=== PATIENT | female | born 2000 | race Two or more races ===

== ENCOUNTER 2021-05-25 19:06 | Emergency (ER) | payer OTHER ==
[2021-05-25 19:15] VITALS: BP 151/73; BMI 35.9
[2021-05-25] MEDS ORDERED: LACTATED RINGERS SOLUTION 1000 ML INFUS.BAG IV ONE (20:11)
[2021-05-25] MEDS ORDERED: ACETAMINOPHEN 1000 MG/100 ML VIAL IVPB ONE (20:11)
[2021-05-25] MEDS ORDERED: ACETAMINOPHEN INJECTION 100 ML IVPB ONE (20:55)
[2021-05-25 21:48] VITALS: TEMP 99.1
[2021-05-25 21:48] LABS: EPI CELLS 16 /uL (0-25.1); HYALINE CASTS 2 /uL (0-3.1); PH,URINE 5.5 (5.0-8.0); URINE APPEARANCE CLOUDY; URINE BACTERIA >9,000 /uL (0-1359); URINE BILIRUBIN NEGATIVE (NEGATIVE); URINE COLOR YELLOW; URINE GLUCOSE (UA) NEGATIVE (NEGATIVE); URINE KETONE 1+ (NEGATIVE); URINE LEUK ESTERASE 2+ (NEGATIVE); URINE NITRITE POSITIVE (NEGATIVE); URINE PROTEIN 1+ (NEGATIVE); URINE RBC 67 /uL (0-23.9); URINE UROBILINOGEN 0.2 mg/dL (0.2-1.0); URINE WBC 469 /uL (0-25.8)
[2021-05-25 21:49] LABS: HCG,QUALITATIVE URINE Negative
[2021-05-25 21:54] LABS: HEMATOCRIT 34.1 % (32.4-45.2); HEMOGLOBIN 12.3 GM/dL (10.7-15.3); MCH 29.7 pg (25.7-33.7); MCHC 35.9 g/dl (32.0-36.0); MEAN CELL VOLUME 82.7 fl (80-96); MEAN PLT VOLUME 8.2 fl (7.5-11.1); PLATELET COUNT 238 10^3/uL (134-434); RBC 4.13 M/mm3 (3.60-5.2); RDW 13.9 % (11.6-15.6); WHITE BLOOD COUNT 9.5 K/mm3 (4.0-10.0)
[2021-05-25 21:55] LABS: INR 1.25 (0.83-1.09); PROTHROMBIN TIME (PATIENT) 14.7 SEC (9.7-13.0)
[2021-05-25 21:57] LABS: ACTIVATED PTT 22.6 SECONDS (25.2-36.5)
[2021-05-25] MEDS ORDERED: CEFTRIAXONE 1,000 MG in DEXTROSE 5%-WATER - 50 ML IVPB ONE (22:01)
[2021-05-25 22:11] LABS: ALBUMIN 3.8 g/dl (3.4-5.0)
[2021-05-25 22:14] LABS: CREATININE 0.9 mg/dL (0.55-1.3)
[2021-05-25 22:15] LABS: BILIRUBIN,TOTAL 1.1 mg/dL (0.2-1); TOT PROT 8.1 g/dl (6.4-8.2)
[2021-05-25] MEDS ORDERED: CEFTRIAXONE 1 GM/50 ML BAG ONE (22:20)
[2021-05-25 22:36] VITALS: PULSE 92
[2021-05-25 23:10] LABS: ANISOCYTOSIS 2+; MACROCYTOSIS 1+; PLATELET ESTIMATE NORMAL
== END 2021-05-25 22:44 | disposition home or self-care (01) ==
LOC: JER 19:06
PROC: 3E0333Z Introduction of Anti-inflammatory into Peripheral Vein, Percutaneous Approach (ICD-10-PCS; principal; 2021-05-25)
PROC: 3E03329 Introduction of Other Anti-infective into Peripheral Vein, Percutaneous Approach (ICD-10-PCS; 2021-05-25)
DX: N10 Acute pyelonephritis (principal)
CPT/HCPCS: 36415; 80053; 81003; 83690; 84703; 85025; 85610; 85730; 86850; 86900; 86901; 87040; 87086; 87186; 87804; 99284-25; C9803; J0131; U0003; U0005